=== PATIENT | male | born 1990 | race Caucasian/White ===

== ENCOUNTER 2022-08-26 17:32 | Emergency (ER) | payer OTHER, MEDICAID, SELFPAY ==
--- NOTE | ~2022-08-26 | XR_ITS ---
EXAMINATION: XR HAND, RIGHT CLINICAL INFORMATION: Crush injury ring finger COMPARISON: None TECHNIQUE: PA, lateral, and oblique views of the right hand. FINDINGS: No fracture or dislocation. No radiodense foreign body or tracking soft tissue gas. The joint spaces throughout the hand and wrist are maintained. XR/XR hand RT 2V IMPRESSION: No fracture or dislocation.
--- NOTE | 2022-08-26 17:46 | ED_ITS ---
HPI - Extremity Injury (Upper) General Chief Complaint: Extremity Injury, Upper Stated Complaint: finger inj @ work Time Seen by Provider: 08/26/22 17:50 Source: patient Mode of arrival: ambulatory Limitations: no limitations History of Present Illness HPI narrative: 31-year-old male previously healthy [id number] here with complaints of right 4th finger pain after crush injury which occurred at work on August 20. Patient reports he was seen at urgent care and had x-rays which were reportedly normal. Patient reports he continues to have pain and discomfort while working and is concerned that he may have a injury that was missed during his urgent care visit. Patient denies any weakness, numbness or tingling of the hand or finger. Related Data Allergies Allergy/AdvReac Type Severity Reaction Status Date / Time No Known Allergies Allergy Verified 08/26/22 17:46 Review of Systems Review of Systems: Yes all other systems are reviewed and are negative Constitutional: Constitutional: Reports no additional constitutional complaints, Denies body ache(s), Denies chills, Denies fever(s), Denies headache(s) and Denies weakness Eyes: Eyes: Reports no additional eye complaints and Denies change in vision ENT: Reports system reviewed and no additional complaints, except as documented, Denies dizziness, Denies headache(s), Denies nasal congestion, Denies nasal discharge and Denies neck pain Cardiovascular: Cardiovascular: Reports no additional cardiovascular co mplaints, Denies chest pain, Denies leg edema and Denies dyspnea Respiratory: Respiratory: Reports no additional respiratory complaints, Denies cough and Denies dyspnea Gastrointestinal: Gastrointestinal: Reports no additional gastrointestinal complaints, Denies abdominal pain, Denies diarrhea, Denies nausea and Denies vomiting Genitourinary: Genitourinary: Denies urinary incontinence Musculoskeletal: Musculoskeletal: Reports no additional musculoskeletal complaints, Denies back pain, Reports arthralgias, Reports joint swelling, Denies neck pain, Denies numbness and Denies tingling Integumentary/Breasts: Skin/Breast: Reports system reviewed and no additional complaints, except as docu and Denies rash Neurologic: Reports system reviewed and no additional complaints, except as documented, Denies Abnormal speech present, Denies dizziness, Denies headache(s), Denies numbness, Denies tingling and Denies weakness [facility] Past Medical History Attestation statement: The following information was validated with the patient. Source: old records reviewed and nursing notes reviewed Social History Social History Advance Directives: No Advance Directives Information Provided: No Physical Exam Vital Signs: Vital Signs: Last Vital Signs Temp 98 F 08/26/22 17:48 Pulse 82 08/26/22 17:48 Resp 17 08/26/22 17:48 BP 115/85 08/26/22 17:48 Pulse Ox 98 08/26/22 17:48 O2 Del Method 08/26/22 17:48 BMI result Body Mass Index 28.0 Const: General: cooperative, healthy appearing, comfortable and no acute distress Orientation/consciousness: patient oriented x3 Limitations: no limitations HEENT: Head: Yes normal to inspection Ears: hearing grossly normal bilaterally General nose exam: Normal external nose present Face and sinus: Yes normal facial exam Mouth: Normal oral and palatal mucosa present Throat: Yes posterior oropharynx normal Eyes: General: appearance normal, both eyes and all related structures Pupils: Equal, round and reactive pupils present Neck: Neck: Yes normal visual inspection Chest: Chest palpation & inspection: normal inspection of the chest Resp: Effort & Inspection: normal respiratory effort Auscultation: clear to auscultation bilaterally Cardio: Rate: regular rate Rhythm: regular rhythm Peripheral pulses: Peripheral pulses 2+ throughout GI: Inspection: Yes normal to inspection Palpation (GI): Soft to palpation and nontender Auscultation: normal bowel sounds Back/Spine/Pelvis: Thoracic/Lumbar Spine: thoracic and lumbar spine normal to inspection Skin: General skin exam: no rashes or lesions noted Neuro: General: patient oriented x3, no focal motor deficits and normal sensation to monofilament Cranial nerves: Yes Equal, round and reactive pupils present Cognition (Neuro): normal cognition Speech: No Abnormal speech present Gait exam (Neuro): Normal gait present Motor exam (neuro): 5/5 motor strength present throughout Extrem: Other: Tenderness on palpation over the dorsal 4th digit right hand over the middle phalanx. FROM with no difficulty with flexion/extension. Sensation normal. Normal distal cap refill General: Yes normal to inspection Course Reevaluation(s) Reevaluation #1: X-ray show no fracture. Likely contusion. Recommend rice, follow-up with occupational health outpatient. Reviewed worrisome signs and symptoms when to return to the emergency room. Comfortable plan for discharge home. Medical Decision Making Medical Decision Making [facility] Narrative: 31 yo male right hand dominant here with right 4th digit swelling/pain after a crush injury which occurred several days ago while working. Seen at urgent care with negative x-rays. Patient reports continued symptoms and would like a 2nd opinion. Patient would like repeat x-rays Differential Diagnosis Differential Diagnoses: The differential diagnosis associated with the presentation includes fracture, contusion Independent Interpretation I performed an independent interpretation of an: Plain X-Ray Interpretation: I indepedentely reviewed the x-ray which shows no acute fracture of the hand Radiology Impression Discussion of test interpretation with radiology: I have reviewed the radiologis t's reading. Radiologist Impression: [address] [address] XRay Report Signed Patient: Shaq Rdz MR#: [id number] : 1990 Acct:[id number] Age/Sex: 31 / M ADM Date: 08/26/22 Loc: HO.ED Attending Dr: Ordering Physician: Jaymie Villagran NP Date of Service: 08/26/22 Procedure(s): XR hand RT 2V Accession Number(s): [id number] cc: Jaymie Villagran NP~ EXAMINATION: XR HAND, RIGHT CLINICAL INFORMATION: Crush injury ring finger? COMPARISON: None? TECHNIQUE: PA, lateral, and oblique views of the right hand. FINDINGS: No fracture or dislocation. No radiodense foreign body or tracking soft tissue gas. The joint spaces throughout the hand and wrist are maintained.? XR/XR hand RT 2V IMPRESSION: No fracture or dislocation. ? Discharge Plan Discharge Clinical Impression: Contusion of finger of right hand Patient Disposition: Home, Self-Care Instructions: Contusion in Adults (ED) Additional Instructions: Your x-ray show no fracture. You likely have a contusion. Apply ice to the area Take Motrin or Tylenol for pain as needed Call your employer tomorrow in find out who is your occupational health provider that you need to follow-up with. Referrals: Physician,Unknown J [Primary Care Provider] - Stand Alone Forms: Work/School Release
[2022-08-26 17:48] VITALS: BP 115/85; PULSE 82; RESP 17; TEMP 36.6; O2SAT 98; BMI 28.0
== END 2022-08-26 19:28 | disposition home or self-care (01) ==
PROVIDERS: Emergency Provider Emergency Medicine
DX: Z04.2 Encounter for examination and observation following work accident (principal); M79.644 Pain in right finger(s); S60.041D Contusion of right ring finger without damage to nail, subsequent encounter; X58.XXXD Exposure to other specified factors, subsequent encounter
CPT/HCPCS: 73120; 99281; 99283

== ENCOUNTER → 2022-12-30 11:41 | Outpatient (BNVA) | payer OTHER, SELFPAY | PROVIDERS: Visit Provider Physician Assistant | DX: S99.921A Unspecified injury of right foot, initial encounter (principal); X50.0XXA Overexertion from strenuous movement or load, initial encounter | CPT/HCPCS: 73610; 73630; 99204 ==

== ENCOUNTER → 2023-01-04 13:35 | Outpatient (BNVA) | payer OTHER, SELFPAY | PROVIDERS: Visit Provider Physician Assistant Medical | DX: S89.81XA Other specified injuries of right lower leg, initial encounter (principal); X50.3XXA Overexertion from repetitive movements, initial encounter | CPT/HCPCS: 99213 ==

== ENCOUNTER → 2023-01-12 11:04 | Outpatient (BNVA) | payer OTHER, SELFPAY | PROVIDERS: Visit Provider Physician Assistant Medical | DX: S99.921A Unspecified injury of right foot, initial encounter (principal); X50.0XXA Overexertion from strenuous movement or load, initial encounter | CPT/HCPCS: 99213 ==

== ENCOUNTER → 2023-01-21 11:39 | Outpatient (BNVA) | payer OTHER, SELFPAY | PROVIDERS: Visit Provider Physician Assistant Medical | DX: S99.921D Unspecified injury of right foot, subsequent encounter (principal); X50.0XXD Overexertion from strenuous movement or load, subsequent encounter | CPT/HCPCS: 99213 ==

== ENCOUNTER 2023-01-29 09:41 | Outpatient (AMB) | payer OTHER, SELFPAY ==
--- NOTE | 2023-01-29 09:44 | A.OFFVIS_ITS ---
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 Patient reports . He states when he flexes his foot his pain is on the top of his foot and radiates up to his ankle. Having numbness when he wears his shoes for too long per patient. Pain is worse when he is over walking and he feels pressure in his foot. 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 He claims when he flexes his foot he has pain on the top that radiates to the ankle. He confirms numbness when wearing his shoes for a prolonged period of time. He reports the pain increases with over ambulation, which causes pressure in his foot. 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 Review of Systems Const All systems reviewed & are unremarkable except as noted in HPI and below Physical Exam Const General: cooperative, healthy appearing, comfortable, no acute distress, well developed and alert Orientation/consciousness: patient oriented x3 HEENT Head: Yes normal to inspection, Yes normocephalic and Yes atraumatic Eyes General: appearance normal, both eyes and all related structures Resp Effort & Inspection: normal respiratory effort and able to speak in complete sentences Cardio Rate: regular rate Peripheral pulses: Peripheral pulses 2+ throughout GI Palpation (GI): Soft to palpation Skin Lesions: no lesions Rashes: no rashes Neuro General: patient oriented x3 Extrem Other: Right ankle: Normal to inspection. No ecchymosis, erythema, or edema. Patient is able to demonstrate dorsiflexion, plantar flexion, pronation and supination. Negative anterior drawer. Sensation intact. Pedal Pulse intact. Assessment & Plan Assessment & Plan (1) Right foot sprain: Code(s): S93.601A - Unspecified sprain of right foot, initial encounter (2) Right ankle sprain: Code(s): S93.401A - Sprain of unspecified ligament of right ankle, initial encounter Plan Mr. Rdz is a 32-year-old male, who is Faroese speaking, presents in the office today, as a new patient, for an evaluation of right ankle pain, which has an onset of 01/05/2023. He claims when he flexes his foot he has pain on the top that radiates to the ankle. He confirms numbness when wearing his shoes for a prolonged period of time. He reports the pain increases with over ambulation, which causes pressure in his foot. The patient already has physical therapy scheduled and has had his evaluation. He will continue to work with physical therapy for the next 4 weeks. He will remain out of work until his follow up. Follow up will be in 4 weeks, or sooner if needed. X-rays of the right ankle that were obtained on 12/30/2022 were reviewed by me, and revealed no acute fractures or dislocation. Patient Instructions: Scribed for Savi Madrigal PA-C by Lay Blackwood medical education manager, on 01/29/2023 at 9:46 am, EST. Your attestation Coding Level of Care Code New Pt Level 3 (31001) Diagnoses Right foot sprain S93.601A Right ankle sprain S93.401A
== END 2023-01-29 10:08 | disposition home or self-care (01) ==
PROVIDERS: Visit Provider Physician Assistant
DX: S93.601A Unspecified sprain of right foot, initial encounter (principal); S93.401A Sprain of unspecified ligament of right ankle, initial encounter
CPT/HCPCS: 99203

== ENCOUNTER → 2023-01-29 09:41 | Outpatient (BNVA) | payer OTHER, SELFPAY | PROVIDERS: Visit Provider Physician Assistant | DX: S93.601A Unspecified sprain of right foot, initial encounter (principal); S93.401A Sprain of unspecified ligament of right ankle, initial encounter; X58.XXXA Exposure to other specified factors, initial encounter; Y93.9 Activity, unspecified; Y92.9 Unspecified place or not applicable; Y99.9 Unspecified external cause status | CPT/HCPCS: 99202 ==

== ENCOUNTER 2023-02-25 14:00 | Outpatient (RCR) | payer OTHER, MEDICAID, SELFPAY ==
--- NOTE | 2023-01-27 08:52 | MHC.PT.EP ---
[facility] [place] Office [place] Office [place] Office [address] Neema Her [address] [phone] F: [phone] F: [phone] F: [phone] F: [phone] Physical Therapy Plan of Care Date of Evaluation: Date of Surgery: N/A Diagnosis: R foot hyperflexion injury Assessment: Pt is a pleasant 32yo M who presents to PT after injuring his R foot at work on 12/29/22. He presents to PT with current impairments in pain, decreased R ankle ROM, decreased RLE strength, decreased balance, and impaired gait. He is limited functionally by standing, twisting, walking, and stair navigation. He is an excellent candidate for skilled PT in order to address current impairments to facilitate return to pain-free PLOF. He is recommended to be seen 2x/week for 4 weeks and will be reassessed at that time. Frequency and Duration: The patient will be seen 2x/week for 4 weeks Short Term Goals: Pt will be I with HEP to promote self management of symptoms Pt will improve R DF to at least 5 degrees [employer] Goals: Pt will demonstrate full ROM and strength all planes of R ankle Pt will tolerate standing and walking > 60 min with minimal to no discomfort Pt will demonstrate improvements in function as evidenced by statistically significant improvement in LEFI outcome measure Treatment Plan: Modalities to reduce pain, spasms and effusion. Manual therapy to restore motion and function. Therapeutic exercise to improve strength and flexibility. Neuromuscular re-education for posture and balance. Therapeutic activities to return to functional activities of daily living. Electronically signed by: Jenni Heard, PT, DPT Please sign and return to therapist. Thank you for your referral.
--- NOTE | 2023-03-01 11:31 | MHC.PT.DC ---
[facility] [place] Office [place] Office [place] Office [address] Neema Her [address] [phone] F: [phone] F: [phone] F: [phone] F: [phone] Physical Therapy Discharge Report Diagnosis: R foot hyperflexion injury Date of Surgery: N/A Date of Evaluation: 01/26/23 Date of Discharge: 03/01/23 Treatments to Date: 7 Cancellations to Date: 2 No Shows to Date: Discharge Status: Improved Function Independent with HEP Recommend MD Follow-up Discharge Summary: Pt was seen for PT from 01/26/23-02/25/23. His last attended and scheduled appointment was 02/25/23. Pt has demonstrated improvements in function and met his STGs. He was able to perform standing balance, gait, and strengthening activities during PT sessions. He improved his score on LEFI outcome measure from 5/80 to 28/80 at last session. He is I with HEP. He is recommended to perform HEP consistently and to follow up with doctor due to unresolving symptoms. Pt is being D/C from skilled PT at this time. Electronically signed by: Jenni Heard, PT, DPT Please sign and return to therapist. Thank you for your referral.
== END 2023-03-01 11:30 | disposition home or self-care (01) ==
LOC: HO.PT 14:00
PROVIDERS: Visit Provider Physician Assistant Medical
DX: S99.821D Other specified injuries of right foot, subsequent encounter (principal)
CPT/HCPCS: 97110; 97162; 97530

== ENCOUNTER 2023-02-26 10:14 | Outpatient (AMB) | payer OTHER, SELFPAY ==
--- NOTE | 2023-02-26 10:20 | A.OFFVIS_ITS ---
Intake Vital Signs 02/26/23 10:24 Height 5 ft 9 in Weight 190 lb BMI 28.1 Intake Visit Reasons: ov- RT ankle/RT foot hyperflexion injury Intake Note: Ariane 32 yr old male presents today for his follow up visit for his right ankle/foot sprain from 01/05/23. States he is cont'ing working with P.T. States he is doing well but feels soreness and achenes day after he attends P.T. Patient is limping a little due to discomfort in ankle. Allergies No Known Allergies Allergy (Verified 02/26/23 10:25) HPI ov- RT ankle/RT foot hyperflexion injury HPI Details 32-year-old male, who is Syrian speaking, presents in the office today for a follow up of right foot and ankle sprain, which had an onset of 01/05/2023. The patient reports he continues to work with physical therapy. He states he is doing well, but feel soreness and acheness the day after attending. He reports he is limping mildly due to discomfort in the ankle. 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 No ecchymosis, erythema, or edema. Patient is able to demonstrate dorsiflexion, plantar flexion, pronation and supination. Negative anterior drawer. Sensation intact. Pedal Pulse intact. Assessment & Plan Assessment & Plan (1) Right foot sprain: Code(s): S93.601A - Unspecified sprain of right foot, initial encounter (2) Right ankle sprain: Code(s): S93.401A - Sprain of unspecified ligament of right ankle, initial encounter Plan Mr. Rdz is a 32-year-old male, who is Syrian speaking, presents in the office today for a follow up of right foot and ankle sprain, which had an onset of 01/05/2023. The patient reports he continues to work with physical therapy. He states he is doing well, but feel soreness and acheness the day after attending. He reports he is limping mildly due to discomfort in the ankle. The patient will continue to work with physical therapy. We will re-evaluated his return to work status at his follow up appointment. Follow up will be in 3 weeks, or sooner if needed. Patient Instructions: Scribed for Savi Madrigal PA-C by Lay Blackwood medical unit secretary, on 02/26/2023 at 10:15 am, EST. Coding Level of Care Code Est Pt Level 3 (15106) Diagnoses Right foot sprain S93.601A Right ankle sprain S93.401A
[2023-02-26 10:24] VITALS: BMI 28.1
== END 2023-02-26 10:39 | disposition home or self-care (01) ==
PROVIDERS: Visit Provider Physician Assistant
DX: S93.601A Unspecified sprain of right foot, initial encounter (principal); S93.401A Sprain of unspecified ligament of right ankle, initial encounter
CPT/HCPCS: 99213

== ENCOUNTER → 2023-02-26 10:14 | Outpatient (BNVA) | payer OTHER, SELFPAY | PROVIDERS: Visit Provider Physician Assistant | DX: S93.401A Sprain of unspecified ligament of right ankle, initial encounter (principal); X58.XXXA Exposure to other specified factors, initial encounter; Y93.9 Activity, unspecified; Y92.9 Unspecified place or not applicable; Y99.8 Other external cause status | CPT/HCPCS: 99212 ==

== ENCOUNTER 2023-04-22 14:07 | Outpatient (AMB) | payer OTHER, SELFPAY ==
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
[2023-04-22 14:38] VITALS: BMI 28.1
[2023-04-22 14:41] VITALS: BMI 28.1
== END 2023-04-22 14:50 | disposition home or self-care (01) ==
PROVIDERS: Visit Provider Physician Assistant
DX: S93.601D Unspecified sprain of right foot, subsequent encounter (principal); S93.401D Sprain of unspecified ligament of right ankle, subsequent encounter
CPT/HCPCS: 99213

== ENCOUNTER → 2023-04-22 14:07 | Outpatient (BNVA) | payer MEDICAID, SELFPAY | PROVIDERS: Visit Provider Physician Assistant | DX: S93.601D Unspecified sprain of right foot, subsequent encounter (principal); S93.401D Sprain of unspecified ligament of right ankle, subsequent encounter | CPT/HCPCS: 99212 ==

== ENCOUNTER 2023-04-29 15:00 | Outpatient (RCR) | payer MEDICAID, OTHER, SELFPAY ==
--- NOTE | 2023-04-05 16:25 | MHC.PT.EP ---
[facility] [place] Office [place] Office [place] Office [address] Neema Her [address] [phone] F: [phone] F: [phone] F: [phone] F: [phone] Physical Therapy Plan of Care Date of Evaluation: 04/05/23 Date of Surgery: N/A Diagnosis: Sprain of unspecified ligament of right ankle, initial encounter Unspecified sprain of right foot, initial encounter Assessment: Pt is a 32yo M who presents to PT with R ankle pain. He was seen for PT at this facility from 01/26/23-03/01/23. He presents today with current impairments in pain, decreased R ankle ROM, decreased R ankle strength, soft tissue restrictions, and impaired gait. He is limited functionally by prolonged standing, prolonged walking, and stair navigation. He is an excellent candidate for skilled PT in order to address current impairments and review HEP in order to maximize function and facilitate return to PLOF. He is recommended to be seen 2x/week for 3 weeks and will be reassessed at that time. Frequency and Duration: The patient will be seen 2x/week for 3 weeks Short Term Goals: Pt will be I with HEP to promote self management of symptoms Pt will improve R DF by at least 10 degrees [facility] Goals: Pt will achieve full ROM and strength all planes of R ankle Pt will tolerate standing and walking > 1 hour with minimal to no discomfort Treatment Plan: Modalities to reduce pain, spasms and effusion. Manual therapy to restore motion and function. Therapeutic exercise to improve strength and flexibility. Neuromuscular re-education for posture and balance. Therapeutic activities to return to functional activities of daily living. Electronically signed by: Jenni Heard, PT, DPT Please sign and return to therapist. Thank you for your referral.
--- NOTE | 2023-04-30 15:14 | MHC.PT.DC ---
[facility] [place] Office [place] Office [place] Office [address] Neema Her [address] [phone] F: [phone] F: [phone] F: [phone] F: [phone] Physical Therapy Discharge Report Diagnosis: Sprain of unspecified ligament of right ankle, initial encounter Unspecified sprain of right foot, initial encounter Date of Surgery: N/A Date of Evaluation: 04/05/23 Date of Discharge: 04/30/23 Treatments to Date: 5 Cancellations to Date: 1 No Shows to Date: 1 Discharge Status: Discharge Summary: Pt was seen for PT at this facility from 01/26/23-03/01/23 and again 04/05/23-04/29/23 for the same injury. His last attended appointment was 04/29/23 and his insurance authorization end date is 04/30/23. He has made fair progress since SOC. He scored a 19/80 on LEFI outcome measure on initial PT evaluation on 04/05/23 and again scored a 19/80 on LEFI outcome measure at D/C on 04/29/23. He reports he performs a couple exercises at home however overall he continues to demonstrate non-compliance of HEP during sessions. He has overall fair tolerance to exercise progressions. He reports the is referring him for a CT scan. Pt is being D/C at this time as his insurance end date for PT is 04/30/23. Pt is recommended to continue HEP consistently and to follow up with doctor if pain persists Electronically signed by: Jenni Heard, PT, DPT Please sign and return to therapist. Thank you for your referral.
== END 2023-04-30 15:15 | disposition home or self-care (01) ==
LOC: HO.PT 15:00
PROVIDERS: Absent Provider Physician Assistant Medical; Visit Provider Physician Assistant
DX: S93.401D Sprain of unspecified ligament of right ankle, subsequent encounter (principal); S93.601D Unspecified sprain of right foot, subsequent encounter
CPT/HCPCS: 97110; 97162; 97530

== ENCOUNTER 2023-06-07 08:37 | Outpatient (REF) | payer OTHER, SELFPAY ==
--- NOTE | ~2023-06-07 | CT_ITS ---
EXAMINATION: CT ANKLE WITHOUT CONTRAST, RIGHT CLINICAL INFORMATION: Right ankle sprain. COMPARISON: Right foot and ankle radiographs dated 12/30/2022. TECHNIQUE: Contiguous axial CT images of the right ankle were obtained without contrast. Multiplanar reformats were provided and reviewed. This CT examination was performed using dose optimization techniques as appropriate, variously including the following: *Automated exposure control *Adjustment of mA and/or kV according to patient size (this includes techniques or standardized protocols for targeted exams where dose is matched to indication/reason for exam; i.e. extremities or head) *Use of iterative reconstruction technique. DOSE: 138 mGy-cm. FINDINGS: No acute fracture or dislocation. The ankle mortise is maintained. Tiny tibiotalar marginal osteophytes. No talar osteochondral lesion. No significant joint space narrowing. No concerning lytic or blastic osseous lesion. No abnormal soft tissue mass or fluid collection. No significant joint effusion. The visualized muscles and tendons are grossly intact, however, evaluation is limited on CT examination. CT/CT ankle RT wo IV con IMPRESSION: 1. No acute fracture or dislocation. 2. Minimal tibiotalar osteoarthritis.
== END 2023-06-07 08:38 | disposition home or self-care (01) ==
LOC: HO.CT 08:37
PROVIDERS: Visit Provider Physician Assistant
DX: S93.401A Sprain of unspecified ligament of right ankle, initial encounter (principal); S93.601A Unspecified sprain of right foot, initial encounter
CPT/HCPCS: 73700

== ENCOUNTER 2023-06-18 12:41 | Outpatient (AMB) | payer OTHER, SELFPAY ==
--- NOTE | 2023-06-18 12:42 | A.OFFVIS_ITS ---
Intake Vital Signs 06/18/23 12:44 Height 5 ft 9 in Weight 190 lb BMI 28.1 Intake Visit Reasons: tele- CT Right Ankle review Intake Note: Brittney 32 year old male presents today for a CT review of right ankle. Allergies No Known Allergies Allergy (Verified 04/22/23 14:41) HPI tele- CT Right Ankle review HPI Details Patient presents for telehealth Right ankle. He states he is doing well and has some intermittent discomfort with activity. No new concerns. 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 No acute fracture or dislocation. 2. Minimal tibiotalar osteoarthritis. Assessment & Plan Assessment & Plan (1) Right ankle sprain: Code(s): S93.401A - Sprain of unspecified ligament of right ankle, initial encounter Qualifiers: Encounter type: subsequent encounter Involved ligament of ankle: unspecified ligament Qualified Code(s): S93.401D - Sprain of unspecified ligament of right ankle, subsequent encounter Plan: We discussed options which include PT, NSAIDs and injections. he will defer on the injection today and proceed with PT and NSAIDs. If symptoms persist she will contact me for a referral to a foot and ankle specialist for an injection. Orders: Orders PT Evaluation and Treatment Today S93.401A - Sprain of unspecified ligament of right ankle, initial encounter Coding Level of Care Code Tele Est Pt Level 3 (15679) Diagnoses Sprain of right ankle, unspecified ligament, subsequent encounter S93.401D Encounter type: subsequent encounter Involved ligament of ankle: unspecified ligament
[2023-06-18 12:44] VITALS: BMI 28.1
== END 2023-06-18 14:43 | disposition home or self-care (01) ==
LOC: HO.HOS 12:41
PROVIDERS: Visit Provider Physician Assistant
DX: S93.401D Sprain of unspecified ligament of right ankle, subsequent encounter (principal)
CPT/HCPCS: 99213

== ENCOUNTER → 2023-06-18 12:41 | Outpatient (BNVA) | payer OTHER, SELFPAY | PROVIDERS: Visit Provider Physician Assistant ==

== ENCOUNTER 2023-08-06 13:00 | Outpatient (RCR) | payer OTHER, SELFPAY ==
--- NOTE | 2023-06-30 07:53 | MHC.PT.EP ---
[facility] [employer] Office [place] Office [place] Office [address] Neema Her [address] [phone] F: [phone] F: [phone] F: [phone] F: [phone] Physical Therapy Plan of Care Date of Evaluation: 06/29/23 Date of Surgery: Diagnosis: This is a 32 yo male presenting to skilled PT with a script for R ankle sprain. Assessment: This is a 32 yo male presenting to skilled PT with a script for R ankle sprain. 03/01/23 PT evaluation: Pt reports he injured his R foot on 12/29/22. He reports he was at work and was walking backwards and his foot got pushed by an electric pallet and was pushed into dorsiflexion. He reports he had had immediate pain and popping. He reports he tried to keep working but had a lot of pain. He reports he had bruising and swelling. He reports he went to work connection the next day. He was given crutches and ibuprofen. He had x-rays. He reports he is unable to do an MRI. He reports numbness and tingling. He reports he took 2 days off of work then was transitioned to light duty but was unable to do that so now he is OOW. He reports he has an appointment with ortho on Wednesday. He was DC'd with reports of HEP noncompliance but was recommended to perform HEP more consistently and to follow up with doctor due to resolving symptoms. He was scheduled for 9 visits but only showed up for 6 visits 04/05 second evaluation: Pt was seen for PT at this facility from 01/26/23-03/01/23 for the same injury. He reports he followed up with ortho and was recommended to continue PT for a few more weeks. His most recent follow up with ortho was 02/26/23. His next follow up with ortho is 04/22/23. He reports he is still OOW. He reports he does not perform his HEP as often as he should. He reports his pain has improved but he does not feel normal. He was DC'd again with reports of HEP noncompliance but was recommended to perform HEP more consistently and to follow up with doctor due to resolving symptoms. He was scheduled for 10 visits but only showed up for 4 visits. Today 12/30/22: Pain is now located at the 1st met/proximal phalanx great toe, PF, midfoot where 2nd/3rd lesser mets are and medial and lateral ankle joints. Pain is described as achy and sharp, it can have tingling at times as well. Pain is constant but increases with weightbearing activities as well as tight footwear. He does feel like his foot feels better from day one however does not feel like PT has improved his pain and does not do his HEP still. He is hard to follow/understand at the evaluation. He reports his ortho wants him to continue PT still, he does not have a follow up with them. Assessment reveals pain that ranges from up to a 8/10 at the worst, his pain is still constant with and without weightbearing. Patient demos decreased ankle ROM, strength of ankle, TTP at PF, midfoot and great toe and impaired posture with associated gait deviations mentioned above related to pain. Based on functional limitations, impaired QOL and pain tolerance patient is a fair candidate for skilled PT 2x/wk for 4wks based on already attempting PT twice in the past 5 months, poor compliance with HEP and appointments. Frequency and Duration: The patient will be seen 2x/wk for 4wks Short Term Goals: Pt will be I with HEP to promote self management of symptoms Pt will improve R DF to at least 5 degrees Skilled Nursing Goals: Pt will demonstrate full ROM and strength all planes of R ankle Pt will tolerate standing and walking > 60 min with minimal to no discomfort Pt will demonstrate improvements in function as evidenced by statistically significant improvement in LEFI outcome measure Pt will tolerate work related tasks involving lifting, pushing and pulling without more than 3/10 Treatment Plan: Modalities to reduce pain, spasms and effusion. Manual therapy to restore motion and function. Therapeutic exercise to improve strength and flexibility. Neuromuscular re-education for posture and balance. Therapeutic activities to return to functional activities of daily living. Electronically signed by: Marci Salmeron PT Please sign and return to therapist. Thank you for your referral.
--- NOTE | 2023-08-06 13:46 | MHC.PT.DC ---
[facility] [place] Office [place] Office [place] Office [address] Neema Her [address] [phone] F: [phone] F: [phone] F: [phone] F: [phone] Physical Therapy Discharge Report Diagnosis: This is a 32 yo male presenting to skilled PT with a script for R ankle sprain. Date of Surgery: Date of Evaluation: 06/29/23 Date of Discharge: 08/06/23 Treatments to Date: 9 Cancellations to Date: 1 No Shows to Date: 1 Discharge Status: Recommend MD Follow-up Discharge Summary: Patient has come to 9 visits of PT. He has already had 2 other evaluations and courses of PT and his pain has not improved. After this last round he continues to report pain and limitations with functional standing. At this time I educated him to refer back to MD as to pain management options and POC moving forward. I did encourage him to continue to work on his HEP. He has a sufficient program to continue on his own at this time and skilled PT is no longer indicated. DC to HEP and refer back to MD due to lack of progress with pain. Lefs was unchanged from eval. Electronically signed by: Marci Salmeron PT Please sign and return to therapist. Thank you for your referral.
== END 2023-08-06 13:52 | disposition home or self-care (01) ==
LOC: HO.PTCHIC 13:00
PROVIDERS: Visit Provider Physician Assistant
DX: S93.401D Sprain of unspecified ligament of right ankle, subsequent encounter (principal)
CPT/HCPCS: 97110; 97161; 97162